=== PATIENT | female | born 1985 | race Caucasian/White ===

== ENCOUNTER 2017-07-29 07:34 | Inpatient (IN) | payer SELFPAY ==
[~2017-07-29] VITALS: Ht 165.1 cm; Wt 106.6 kg
[2017-07-29] VITALS (7 sets, daily range): BP systolic 105–132; BP diastolic 54–78
[~2017-07-29 07:34] MED LIST: ALOE VERA PO; BARLEY PO
[2017-07-29] MEDS ORDERED: LR 1,000 ML IV ONE (07:45)
[2017-07-29 08:20] LABS: CONTROL LINE UCG INT CTR LINE PRESENT
[2017-07-29] MEDS ORDERED: LIDOCAINE 1% SDV INJ 30 ML VIAL As Ordered ONE (09:05)
[2017-07-29] MEDS ORDERED: ceFAZolin 1GM INJ (J0690) As Ordered ONE (09:05)
[2017-07-29] MEDS ORDERED: BUPIVACAINE HCL 0.25% 30 ML VIAL As Ordered ONE (09:05)
[2017-07-29] MEDS ORDERED: ONDANSETRON 4MG/2ML VIAL (J2405) As Ordered ONE ×2 (09:06→12:32)
[2017-07-29] MEDS ORDERED: dexameTHASONE 4 MG/ML 1ML VIAL (J1100) As Ordered ONE (09:06)
[2017-07-29] MEDS ORDERED: PROPOFOL 200 MG/20 ML VIAL As Ordered ONE (09:06)
[2017-07-29] MEDS ORDERED: fentaNYL 100 MCG/2 ML INJECTION (J3010) As Ordered ONE ×3 (09:06→11:07)
[2017-07-29] MEDS ORDERED: MIDAZOLAM INJ 2 MG/2 ML VIAL (J2250) As Ordered ONE (09:06)
[2017-07-29] MEDS ORDERED: ROCURONIUM BROMIDE 50 MG/5 ML VIAL/SYRINGE As Ordered ONE (09:06)
[2017-07-29] MEDS ORDERED: LIDOCAINE 2% INJ 100 MG/5 ML SDV (FOR ANES.) As Ordered ONE (09:06)
[2017-07-29] MEDS ORDERED: METOCLOPRAMIDE INJ 10MG/2ML VIAL (J2765) As Ordered ONE (09:06)
[2017-07-29] MEDS ORDERED: BUPIVACAINE LIPOSOME/PF 1.3% 20 ML VIAL (13.3MG/ML)(EXPAREL) As Ordered ONE (10:03)
[2017-07-29] MEDS ORDERED: GLYCOPYRROLATE INJ 0.2 MG/ML 2 ML VIAL As Ordered ONE (12:32)
[2017-07-29] MEDS ORDERED: HYDROmorphone HCL 2 MG/ML 1ML VIAL (J1170) As Ordered ONE (12:48)
[2017-07-29] MEDS ORDERED: MORPHINE 4 MG/ML 1ML SYRINGE IV PRN (13:15)
[2017-07-29] MEDS ORDERED: MOM 30ML SUSPENSION UDC PO PRN (13:15)
[2017-07-29] MEDS ORDERED: PERCOCET 5MG/325MG TAB PO PRN ×2 (13:15→13:45)
[2017-07-29] MEDS ORDERED: ONDANSETRON 4MG/2ML VIAL (J2405) IV PRN (13:15)
[2017-07-29] MEDS ORDERED: ACETAMINOPHEN TAB 650MG DOSE (2X325MG) PO PRN (13:15)
[2017-07-29] MEDS: fentaNYL 100 MCG/2 ML INJECTION (J3010) IV PRN ×4 (13:45→14:08)
[2017-07-29] MEDS ORDERED: LR 1,000 ML IV SCH (13:45)
[2017-07-29] MEDS ORDERED: oxyCODONE 5MG TAB As Ordered ONE (13:47)
[2017-07-29] MEDS ORDERED: oxyCODONE 5MG TAB PO PRN (14:00)
[2017-07-29] MEDS: SENOKOT S TAB PO SCH (20:58)
[2017-07-30] VITALS: BP 106/54
[2017-07-30] MEDS: KETOROLAC 30 MG/ML VIAL (J1885) IV PRN ×2 (03:01→13:46)
[2017-07-30 04:00] VITALS: BP 105/52
[2017-07-30 07:21] LABS: BASO % 0.1 % (0.0-1.0); EOS % 0.1 % (0.0-3.0); IMMATURE GRANULOCYTE % 0.2 % (0-0); LYMPH # 1.8 10^3/uL (1.5-4.5); LYMPH % 20.5 % (24.0-44.0); MEAN CORPUSCULAR HEMOGLOBIN 30.8 pg (27.0-33.0); MEAN CORPUSCULAR HGB CONC 34.3 g/dl (32.0-36.5); MONO # 0.8 10^3/uL (0.0-0.8); MONO % 8.7 % (0.0-5.0); NEUTROPHILS # 6.2 10^3/uL (1.8-7.7); NEUTROPHILS % 70.4 % (36.0-66.0); PLATELET COUNT, AUTOMATED 234 10^3/uL (150-450); RED CELL DISTRIBUTION WIDTH 12.6 % (11.5-14.5); WHITE BLOOD COUNT 8.8 10^3/uL (4.0-10.0)
[2017-07-30 07:37] LABS: ADD MANUAL DIFFER NO; DIFF SLIDE NUMBER 74
[2017-07-30 07:44] LABS: ANION GAP 6 MEQ/L (8-16); BLOOD UREA NITROGEN 9 MG/DL (7-18); CALCIUM LEVEL 7.9 MG/DL (8.5-10.1); CARBON DIOXIDE LEVEL 27 MEQ/L (21-32); CHLORIDE LEVEL 108 MEQ/L (98-107); CREATININE FOR GFR 0.47 MG/DL (0.55-1.02); GLOMERULAR FILTRATION RATE > 60.0 (>60); GLUCOSE, FASTING 97 MG/DL (70-105); POTASSIUM SERUM 3.6 MEQ/L (3.5-5.1); SODIUM LEVEL 141 MEQ/L (136-145)
[2017-07-30 08:00] VITALS: BP 126/69
[2017-07-30] MEDS: ENOXAPARIN 40 MG/0.4 ML SYRINGE (J1650) SC SCH (09:25)
[2017-07-30] MEDS: SENOKOT S TAB PO SCH ×2 (09:26→20:07)
[2017-07-30 12:00] VITALS: BP 161/81
[2017-07-30] MEDS: PERCOCET 5MG/325MG TAB PO PRN ×2 (13:45→20:31)
[2017-07-30 16:00] VITALS: BP 126/70
[2017-07-30 20:00] VITALS: BP 129/60
[2017-07-31] VITALS: BP 130/62
[2017-07-31] MEDS: PERCOCET 5MG/325MG TAB PO PRN ×2 (04:00→12:05)
[2017-07-31 04:09] VITALS: BP 138/78
[2017-07-31 07:29] LABS: BASO % 0.3 % (0.0-1.0); EOS # 0.1 10^3/uL (0.0-0.50); EOS % 1.4 % (0.0-3.0); IMMATURE GRANULOCYTE % 0.3 % (0-0); LYMPH # 2.1 10^3/uL (1.5-4.5); LYMPH % 35.5 % (24.0-44.0); MEAN CORPUSCULAR HGB CONC 33.7 g/dl (32.0-36.5); MONO # 0.6 10^3/uL (0.0-0.8); MONO % 9.7 % (0.0-5.0); NEUTROPHILS % 52.8 % (36.0-66.0); PLATELET COUNT, AUTOMATED 178 10^3/uL (150-450); RED CELL DISTRIBUTION WIDTH 12.9 % (11.5-14.5); WHITE BLOOD COUNT 5.8 10^3/uL (4.0-10.0)
[2017-07-31 07:49] LABS: ANION GAP 7 MEQ/L (8-16); BLOOD UREA NITROGEN 10 MG/DL (7-18); CALCIUM LEVEL 7.9 MG/DL (8.5-10.1); CARBON DIOXIDE LEVEL 26 MEQ/L (21-32); CHLORIDE LEVEL 110 MEQ/L (98-107); GLOMERULAR FILTRATION RATE > 60.0 (>60); GLUCOSE, FASTING 76 MG/DL (70-105); POTASSIUM SERUM 3.4 MEQ/L (3.5-5.1); SODIUM LEVEL 143 MEQ/L (136-145)
[2017-07-31 08:03] VITALS: BP 121/67
[2017-07-31] MEDS ORDERED: PERCOCET PO (10:07)
--- NOTE | 2017-07-31 10:11 | IPNPDOC ---
Subjective General Date/Time Seen The patient was seen on 07/31/17 at 10:08. Subject Chief Complaint/History The patient is a 32-year-old female admitted with a reason for visit of Ventral Hernia. Current Medications Current Medications Current Medications Acetaminophen (Tylenol Tab) 650 mg Q4HP PRN PO MILD PAIN or TEMP > 101; Start 07/29/17 at 13:15; Stop 08/28/17 at 13:14 Cefazolin Sodium 1 gm/Dextrose 50 ml @ 100 mls/hr Q8H IV Last administered on 07/30/17 09:25; Start 07/29/17 at 18:00; Stop 07/30/17 at 10:29; Status DC Enoxaparin Sodium (Lovenox) 40 mg DAILY SC Last administered on 07/30/17 09:25 ; Start 07/30/17 at 09:00; Stop 08/04/17 at 08:59 Fentanyl Citrate (Sublimaze) 25 mcg Q5MP PRN IV MODERATE PAIN (PS 4-7) Last administered on 07/29/17 14:08; Start 07/29/17 at 13:45; Stop 07/29/17 at 14:45 ; Status DC Ketorolac Tromethamine (ToRADol) 30 mg Q6HP PRN IV MILD/MODERATE PAIN (PS 1-7) Last administered on 07/30/17 13:46; Start 07/29/17 at 13:15; Stop 08/03/17 at 13:14 Lactated Ringer's 1,000 ml @ 100 mls/hr Q10H IV ; Start 07/29/17 at 13:45; Stop 07/29/17 at 14:45; Status DC Magnesium Hydroxide (Milk Of Magnesia) 30 ml DAILYPRN PRN PO CONSTIPATION; Start 07/29/17 at 13:15; Stop 08/28/17 at 13:14 Morphine Sulfate (Morphine Sulfate Inj) 4 mg Q2HP PRN IV SEVERE PAIN (PS 8-10) ; Start 07/29/17 at 13:15; Stop 08/05/17 at 13:14 Ondansetron HCl (ZOFRAN INJection) 4 mg Q6HP PRN IV NAUSEA OR VOMITING Last administered on 07/29/17 13:43; Start 07/29/17 at 13:15; Stop 08/28/17 at 13: 14 Oxycodone HCl (Roxicodone, Oxyir) 5 mg ONCE PRN PO PAIN Last administered on 13:55; Start 07/29/17 at 14:00; Stop 07/29/17 at 15:00; Status DC Oxycodone/ Acetaminophen (Percocet 5mg/ 325mg Tablet) 1 tab ASDIRECTED PRN PO MILD/MODERATE PAIN (PS 1-7); Start 07/29/17 at 13:45; Stop 07/29/17 at 13:51; Status DC Oxycodone/ Acetaminophen (Percocet 5mg/ 325mg Tablet) 1 tab Q4HP PRN PO MODERATE PAIN (PS 5-7) Last administered on 07/31/17 04:00; Start 07/29/17 at 13:15; Stop 08/05/17 at 13:14 Oxycodone/ Acetaminophen (Percocet 5mg/ 325mg Tablet) 2 tab Q6HP PRN PO SEVERE PAIN (PS 8-10); Start 07/29/17 at 13:15; Stop 08/05/17 at 13:14 Senna/Docusate Sodium (Senokot S) 1 tab BID PO Last administered on 07/30/17 20:07; Start 07/29/17 at 21:00; Stop 08/28/17 at 20:59 Allergies Coded Allergies: Acetaminophen (Unverified Adverse Reaction, Mild, n/v, 07/29/17) Objective Physical Examination Examination GENERAL APPEARANCE:Patient seen, laying in bed, awake, alert, and oriented. Comfortable, in no acute distress. SKIN: Warm and moist. HEENT: Normocephalic, atraumatic. [place] palpebral conjunctiva, anicteric sclerae. Lips and mucosa appear moist. NECK: Supple, no thyromegaly. No obvious jugular venous distention. LUNGS: Clear to auscultation bilaterally. No wheezing appreciated. HEART: No chest wall abnormalities. Regular rate and rhythm with no murmurs appreciated. ABDOMEN: Abdomen is round, soft, minimally distended. CICI drains in place with light pink serosanguineous fluid. Midline incision is clean, dry and intact. EXTREMITIES: Extremities have no deformities. No edema identified. Vital Signs Vital Signs Date Time Temp Pulse Resp B/P (MAP) Pulse Ox O2 Delivery O2 Flow Rate FiO2 07/31/17 08:03 98.6 84 16 121/67 (85) 98 Room Air I&Os I&O- Last 24 Hours up to 6 AM 08/01/17 05:59 Intake Total 120 ml Output Total 25 ml Balance 95 ml Laboratory Data Labs 24H Laboratory Tests 2 07/31/17 06:56: Immature Granulocyte % (Auto) 0.3H, White Blood Count 5.8, Red Blood Count 3.61L , Hemoglobin 11.2L, Hematocrit 33.2L, Mean Corpuscular Volume 92.0, Mean Corpuscular Hemoglobin 31.0, Mean Corpuscular Hemoglobin Concent 33.7, Red Cell Distribution Width 12.9, Platelet Count 178, Neutrophils (%) (Auto) 52.8, Lymphocytes (%) (Auto) 35.5, Monocytes (%) (Auto) 9.7H, Eosinophils (%) (Auto) 1.4, Basophils (%) (Auto) 0.3, Neutrophils # (Auto) 3.0, Lymphocytes # (Auto) 2.1, Monocytes # (Auto) 0.6, Eosinophils # (Auto) 0.1, Basophils # (Auto) 0.0, Immature Granulocyte # (Auto) 0.0, Nucleated Red Blood Cells % (auto) 0.0, Anion Gap 7L, Glomerular Filtration Rate > 60.0, Blood Urea Nitrogen 10, Creatinine 0.40L, Sodium Level 143, Potassium Level 3.4L, Chloride Level 110H, Carbon Dioxide Level 26, Calcium Level 7.9L CBC/BMP Laboratory Tests 07/31/17 06:56 Red Blood Count 3.61 L, Mean Corpuscular Volume 92.0, Mean Corpuscular Hemoglobin 31.0, Mean Corpuscular Hemoglobin Concent 33.7, Red Cell Distribution Width 12.9, Neutrophils (%) (Auto) 52.8, Lymphocytes (%) (Auto) 35.5, Monocytes (%) (Auto) 9.7 H, Eosinophils (%) (Auto) 1.4, Basophils (%) ( Auto) 0.3, Neutrophils # (Auto) 3.0, Lymphocytes # (Auto) 2.1, Monocytes # (Auto ) 0.6, Eosinophils # (Auto) 0.1, Basophils # (Auto) 0.0, Calcium Level 7.9 L Impression POD2 repair ventral hernia doing well pain well controlled d/c home with cici drain I will see her in my clinic on . Plan / VTE VTE Prophylaxis Ordered?: Yes REBECCA BARRIOS MD Jul 31, 2017 10:11
[2017-07-31] MEDS: SENOKOT S TAB PO SCH (10:23)
[2017-07-31] MEDS: ENOXAPARIN 40 MG/0.4 ML SYRINGE (J1650) SC SCH (10:24)
--- NOTE | 2017-08-16 11:14 | ROOPDOC ---
[facility] Report Of Operation Report of Operation DATE OF PROCEDURE: 07/29/2017 PREPROCEDURE DIAGNOSES: Ventral hernia, recurrent umbilical hernia. POSTPROCEDURE DIAGNOSES: Multiple ventral hernias including a large umbilical hernia, 2 infraumbilical midline ventral hernias.. PROCEDURE: Open ventral hernia repair, removal of previous mesh, posterior component separation, placement of preperitoneal mesh (retrorectus). SURGEON: Sandro Clarke MD BEAD FILLER: Roni Morris NP ANESTHESIA: general anesthesia ESTIMATED BLOOD LOSS: Approximately 50 mL. COMPLICATIONS: none. REMARKS: Patient is a 32-year-old [facility] female 9 previous pregnancies who had laparoscopic umbilical hernia repair with a 20 cm mesh placed back in 2014. She subsequently got twice after that and had recurrence of a bulge and even worsening of the bulge during the last . She saw me when she was and I recommend repair after that . It is now about 8 weeks after she has delivered and she has a complex appearing ventral hernia with multiple defects on the abdominal wall on my exam and compressing the area of the umbilicus to the area of the midline lower abdomen. She presents for open ventral hernia repair today. PROCEDURE NOTE: Thin abdominal wall secondary to multiple pregnancies with associated diastases of the midline muscle. Complex hernia with a 6 cm umbilical defect and 2 other separate defects bridged by a thin fascia on the lower abdomen including near suprapubic area. She has loose excess skin with some thinning and stretching from the hernia but no ulcerations including that of the umbilicus. DESCRIPTION OF PROCEDURE: Patient was given a dose of Ancef 2 g IV for prophylactic antibiotic. She is brought to the operating room, placed supine on the table. Sequential Compression boots placed on both lower extremities for DVT prophylaxis. A Morelos catheter placed for urine output monitoring. Her abdomen was then prepped and draped widely in usual sterile fashion. Timeouts were performed using both preinduction and pre-incision safety checklist to verify correct patient, procedure site and additional clinical information prior to beginning the procedure UA cruciate incision in compressing the loose skin involving the umbilicus and the lower midline abdomen was created. This was taken down through to the subcutaneous tissue with the Bovie cautery subcutaneous tissue was widely dissected both bluntly and sharply has become around the hernia sac up until we reach the fascia circumferentially. The large complex, [place] cheese type defect was noted. I opened up the hernia sac at the superior portion of the umbilicus to get a sense of the amount of adhesion and the configuration of fascial defect. The hernia sac this area was dissected down to the fascia and removed. By inserting my left hand was feeling for the other fascial defects and reducing back the intra-abdominal components adhered to the fascial wall which is mostly omentum. Tracing this other defects in the hernia sac along the area was likewise dissected and incised. One hand width is 3 distinct defects bridged by a thin fascia in between them this was cheese type fashion the largest defect being the 6 cm umbilical defect. The mesh seems to help retract it towards the left side and folded. I excised the fascial bridges and created a single fascial defect now measuring 9 centimeters vertically. The mesh was dissected free of the abdominal wall. The white subcutaneous dissection was created to create to free up the abdominal wall from the subcutaneous tissue. She though obese has a lax but very thin abdominal wall. Though I could put the edges of the fascia together with minimal tension, a mesh needs to be placed to support the abdominal wall as well as prevent recurrence. At this point I contemplated my options. I can do a hybrid procedure well close the fascia and coming laparoscopically to tack he wide mesh. As the abdominal wall seems to be quite lax I could do a posterior component separation separate the posterior fascia, close it and placed the mesh retrorectus. I chose the latter option. The posterior fascia was scored to open this up starting at the left side analysis were placed and mostly by blunt dissection using Kitner and finger dissection the posterior fascia was widely freed from the anterior abdominal wall made up of the thin rectus muscle and the anterior fascia. As we come in to the linea alba this was divided with the Harmonic scalpel. Similar posterior fascial dissection was created on the other side to create the 2 defects. This managed to free this up to close the posterior fascia without much tension using 1 Vicryl in a running fashion. I checked and make sure for adequate hemostasis I did have to take out the right inferior epigastric artery which was bleeding. I chose a 15 x 10 cm Precedex composite mesh. Trimmed the edges to form an oval mesh. At the 4 corners had placed long transabdominal stay sutures and pulled this through the anterior abdominal fascia to place the mesh center on the hernia repair. Under direct vision and then I placed 4 more sutures transabdominally to secure the mesh to the anterior abdominal wall flat and snug without much due tension this transabdominal sutures were tied off. I then closed the anterior fascia wall trimming it with another running suture of 1 Vicryl. 210 flat MAYRA drains were left in subcutaneous space for monitoring and removal of seroma and hematoma. The cavity from the wide dissection of the subcutaneous space was tightened and closed with 3-0 Vicryl. I left a Tisseel fibrin glue in the preperitoneal space to hopefully prevent seroma formation this area. The skin was closed with joann. Bulky gauze dressing, AVD pads was then used to cover the wound the drains were sutured to the skin. Patient was then promptly awakened extubated and brought to recovery room stable SANDRO CLARKE MD Aug 16, 2017 11:14
--- NOTE | 2017-08-16 12:10 | DS.PDOC ---
Discharge Summary General Date of Admission Jul 29, 2017 at 07:34 Date of Discharge 07/31/2017 Attending Physician: REBECCA BARRIOS MD Discharge Summary PROCEDURES PERFORMED DURING STAY: Open ventral hernia repair, posterior component separation, retrorectus placement of present Possible mesh 15 x 10 cm ADMITTING DIAGNOSES: 1. Recurrent ventral hernia DISCHARGE DIAGNOSES: 1. Recurrent ventral hernia COMPLICATIONS/CHIEF COMPLAINT: Ventral Hernia. HISTORY OF PRESENT ILLNESS: Patient is admitted to the hospital after an elective repair of a complex ventral hernia that was previously repaired for pain control as well as monitoring of drain output. HOSPITAL COURSE: Patient underwent repair of her recurrent, complex ventral hernia with posterior component separation, placement of a mesh at the retrorectus space. 2 subcutaneous drains were placed for postoperative monitoring. Her Morelos catheter was removed postoperatively. She was stable in the PACU. She was transferred to the floor. She reports only mild discomfort at the incision. Her diet was promptly advanced to regular food after she tolerated regular liquids the first day. She was instructed to ambulate which she did. She was instructed how to take care of her drain. Total drain output was 98 mL's, 65 MLS) 5 mL on the days that she was admitted to the hospital. She was discharged home with the drain and is instructed to follow up visit in the clinic next week for removal of the drain. DISCHARGE MEDICATIONS: Please see below. ALLERGIES: Please see below. PHYSICAL EXAMINATION ON DISCHARGE: VITAL SIGNS: Please see below. GENERAL: Comfortable HEENT: [place] palpebral conjunctiva NECK: Supple CARDIOVASCULAR EXAMINATION: Regular heart rate and rhythm RESPIRATORY EXAMINATION: Lungs are clear to auscultation bilaterally with no wheezing ABDOMINAL EXAMINATION: Round, soft, nondistended. Lower midline incision with joann intact are clean, dry with no drainage or erythema. She has 2 subcutaneous drain over the left and right of the incision which is draining light pink serosanguineous fluid and is only minimally drained today. EXTREMITIES: No edema SKIN: No rashes NEUROLOGICAL EXAMINATION: Awake, alert, oriented PSYCHIATRIC EXAMINATION: Appropriate mood and affect LABORATORY DATA: Please see below. IMAGING: None PROGNOSIS: Good ACTIVITY: Light activity for 4-6 weeks. Where the abdominal binder when upright and ambulating. No heavy lifting. DIET: Regular as tolerated. DISCHARGE PLAN: Patient is discharged home with the drains. She'll follow-up with me in a week's time for consideration for removal of drain DISPOSITION: Home, Self-Care. DISCHARGE INSTRUCTIONS: 1. Keep the abdominal area dry.. 2. Record drain amount and character. 3. Change dressings as needed. 4. Did not breast-feed up to 48 hours from the last intake of narcotic medication ITEMS TO FOLLOWUP ON ON OUTPATIENT: 1. Drain output DISCHARGE CONDITION: [Stable]. TIME SPENT ON DISCHARGE: Greater than 30 minutes. Discharge Medications Scheduled [barley] , 1 TBS PO DAILY, (Reported) [liquid aloe vera ] , 2 OZ PO DAILY, (Reported) in water Scheduled PRN Oxycodone/Acetaminophen (Percocet 5MG/325MG Tablet) 1 Tab Tab, 1-2 TAB PO Q6HP PRN for SEVERE PAIN (PS 8-10) Allergies Coded Allergies: Acetaminophen (Unverified Adverse Reaction, Mild, n/v, 07/29/17) REBECCA BARRIOS MD Aug 16, 2017 12:10
== END 2017-07-31 12:35 | disposition home or self-care (01) | DRG 227 ==
LOC: M OR 07:34 → M PED 14:31
PROVIDERS: ADMIT Surgery; ATTEND Surgery
PROC: 0KNK0ZZ Release Right Abdomen Muscle, Open Approach (ICD-10-PCS; 2017-07-29)
PROC: 0WUF0JZ Supplement Abdominal Wall with Synthetic Substitute, Open Approach (ICD-10-PCS; 2017-07-29)
PROC: 0KNL0ZZ Release Left Abdomen Muscle, Open Approach (ICD-10-PCS; principal; 2017-07-29 09:15)
DX: K43.2 Incisional hernia without obstruction or gangrene (principal); K42.9 Umbilical hernia without obstruction or gangrene; Z88.6 Allergy status to analgesic agent; Z79.899 Other long term (current) drug therapy

== ENCOUNTER 2025-10-11 10:40 | Inpatient (IN) | payer SELFPAY ==
[~2025-10-11] VITALS: Ht 160 cm; Wt 135.9 kg
[~2025-10-11 10:40] MED LIST changes: +PERCOCET PO
[2025-10-11 11:38] VITALS: BP 128/68
[2025-10-11] MEDS ORDERED: PRENTAB9 PO (11:54)
[2025-10-11] MEDS ORDERED: CARBOPROST TROMETHAMINE 250 MCG/ML AMP IM PRN (16:00)
[2025-10-11] MEDS: ceFAZolin SODIUM 3 GM in DEXTROSE 5% (D5W) MINI-BAG PLU 100 ML IV ONE (16:00)
[2025-10-11] MEDS: LR 1,000 ML IV SCH ×2 (16:00→23:49)
[2025-10-11] MEDS ORDERED: METHYLERGONOVINE MALEATE 0.2 MG/ML 1 ML VIAL IM PRN ×2 (16:00→21:45)
[2025-10-11] MEDS ORDERED: TRANEXAMIC ACID INJection 1,000 MG in NS 100 ML IV PRN (16:00)
[2025-10-11] MEDS: BICITRA 30 ML SOLN UDC PO ONE (16:00)
[2025-10-11] MEDS ORDERED: OXYTOCIN DRIP 30 UNITS in IV 1 EA IV PRN (16:00)
[2025-10-11 17:27] VITALS: BP 141/86
[2025-10-11 17:37] LABS: PLATELET COUNT, AUTOMATED 260 10^3/uL (150-450)
[2025-10-11 18:34] LABS: HIV 1&2 SCREEN NEGATIVE (NEGATIVE)
[2025-10-11 18:43] LABS: HEPATITIS C VIRUS ABY INDEX < 0.02 INDEX (<0.8)
[2025-10-11] MEDS ORDERED: OXYTOCIN 30UNITS IN 0.9% NaCl 500ML IV BAG IV ONE (19:43)
[2025-10-11] MEDS ORDERED: MORPHINE PRES-FREE INJ 10 MG/10 ML VIAL As Ordered ONE (19:44)
[2025-10-11] MEDS ORDERED: PHENYLephrine 500MCG 5ML (100MCG/ML) SYRINGE As Ordered ONE (20:29)
[2025-10-11] MEDS ORDERED: TRANEXAMIC ACID 100 MG/ML 10ML VIAL As Ordered ONE (20:47)
[2025-10-11 21:09] LABS: CORD GAS ABE V -1.0; CORD GAS HCO3 V 25.1 MMOL/L; CORD GAS O2 SAT V 35.5 %; CORD GAS PCO2 V 46.7 mmHg; CORD GAS PH V 7.348 UNITS; CORD GAS PO2 V 16.8 mmHg; CORD GAS SBC V 22.0 MMOL/L; CORD GAS TCO2 V 26.5 MMOL/L
[2025-10-11 21:14] LABS: CORD GAS ABE A -4.1; CORD GAS HCO3 A 23.3 MMOL/L; CORD GAS O2 SAT A 15.3 %; CORD GAS PCO2 A 51.6 mmHg; CORD GAS PH A 7.273 UNITS; CORD GAS SBC A 19.1 MMOL/L; CORD GAS TCO2 A 24.9 MMOL/L
[2025-10-11] MEDS ORDERED: **NOTE PATIENT COMMENT** MISC XX SCH (21:25)
[2025-10-11] MEDS ORDERED: HYDROMORPHONE HCL 0.5 MG/0.5 ML SYRINGE IV PRN (21:25)
[2025-10-11] MEDS: SLF 3 ML SYR IV SCH (21:25)
[2025-10-11] MEDS ORDERED: diphenhydrAMINE 50 MG/ML VIAL IV PRN (21:25)
[2025-10-11] MEDS ORDERED: NALOXONE INJ 0.4 MG/1 ML VIAL IV PRN ×2 (21:25)
[2025-10-11] MEDS ORDERED: KETOROLAC 30 MG/ML 1 ML VIAL As Ordered ONE (21:25)
[2025-10-11] MEDS ORDERED: MORPHINE 2 MG/ML 1 ML VIAL IV PRN (21:45)
[2025-10-11] MEDS ORDERED: RHOGAM 300MCG (1500IU) INJ IM SCH (21:45)
[2025-10-11] MEDS ORDERED: ONDANSETRON 4MG/2ML VIAL IV PRN (21:45)
[2025-10-11] MEDS ORDERED: SIMETHICONE 80MG CHEW TAB PO PRN (21:45)
[2025-10-11] MEDS ORDERED: ANUSOL HC CREAM 30 GM TOP PRN (21:45)
[2025-10-11] MEDS ORDERED: CALCIUM CARBONATE 500 MG CHEW U/D PO PRN (21:45)
[2025-10-11] MEDS ORDERED: OXYC-517 PO (21:54)
[2025-10-11] MEDS ORDERED: IBUP80TA PO (21:54)
[2025-10-11 22:40] VITALS: TEMP 97.2
[2025-10-11 23:45] VITALS: BP 108/59; O2SAT 98
[2025-10-11] MEDS: OXYTOCIN DRIP 30 UNITS in IV 1 EA IV SCH (23:48)
[2025-10-12] VITALS (9 sets, daily range): BP systolic 100–127; BP diastolic 50–66; O2SAT 97–99
[2025-10-12] MEDS: UNRESOLVED CLARIFICATION ENTRY XX SCH (00:01)
[2025-10-12] MEDS: ENOXAPARIN 60 MG/0.6 ML SYRINGE (J1650 PER 10MG) SC SCH (02:44)
[2025-10-12] MEDS: KETOROLAC 30 MG/ML 1 ML VIAL IV SCH (04:32)
[2025-10-12 07:59] LABS: BASO # 0.0 10^3/uL (0.0-0.2); BASO % 0.3 % (0.0-1.0); EOS # 0.1 10^3/uL (0.0-0.5); EOS % 1.3 % (0.0-3.0); LYMPH # 1.4 10^3/uL (1.5-5.0); LYMPH % 17.6 % (24.0-44.0); MONO # 0.5 10^3/uL (0.0-0.8); MONO % 6.1 % (2.0-8.0); NEUTROPHILS # 5.8 10^3/uL (1.5-8.5); NEUTROPHILS % 74.3 % (36.0-66.0); PLATELET COUNT, AUTOMATED 195 10^3/uL (150-450)
[2025-10-12] MEDS: DOCUSATE SODIUM 100 MG CAPSULE PO SCH (09:00)
[2025-10-12] MEDS: PRENATAL VITAMINS CHEWABLE TABLET PO SCH (09:00)
[2025-10-12] MEDS: IBUPROFEN 800 MG TAB PO SCH (23:23)
[2025-10-13 02:00] VITALS: BP 116/88; O2SAT 98
[2025-10-13 05:49] VITALS: BP 106/53; O2SAT 97
[2025-10-13] MEDS: MEASLES,MUMPS,RUBELLA VACCINE INJ (MMR-II) SC.IMMUN ONE (09:00)
== END 2025-10-13 14:25 | disposition home or self-care (01) | DRG 540 ==
LOC: M LDO 10:40 → M LDI 15:57 → M OBS 23:18
PROVIDERS: ADMIT Advanced Practice Midwife; ATTEND Obstetrics & Gynecology
PROC: 10D00Z1 Extraction of Products of Conception, Low, Open Approach (ICD-10-PCS; principal; 2025-10-11 18:00)
DX: O32.2XX0 Maternal care for transverse and oblique lie, not applicable or unspecified (principal); K43.9 Ventral hernia without obstruction or gangrene; Z3A.40 40 weeks gestation of pregnancy; O99.62 Diseases of the digestive system complicating childbirth; Z37.0 Single live birth